=== PATIENT | male | born 1955 | race Two or more races ===

== ENCOUNTER 2020-10-10 23:28 | Emergency (ER) | payer MEDICAID, MEDICARE, OTHER ==
[~2020-10-10] VITALS: Ht 182.9 cm; Wt 90.7 kg
[~2020-10-10 23:28] MED LIST: ALPR0.5T7 PO; AML5T PO; ATOR40TA52 PO; FARXIGA; METF-372 PO; SITA100T7 PO
[2020-10-11 00:41] LABS: Basophils # (auto) 0 10 ^3/uL (0-0.2); Basophils % (auto) 0.5 % (0.0-2.0); Eosinophils # (auto) 0 10 ^3/uL (0-0.8); Eosinophils % (auto) 0.7 % (0.0-7.0); Hematocrit 40.4 % (41.0-53.0); Hemoglobin 13.6 g/dL (13.5-17.5); Lymphocytes # (auto) 1.3 10 ^3/uL (0.4-5.4); Lymphocytes % (auto) 26.5 % (10.0-50.0); Mean Corpuscular Hgb Conc. 33.7 g/dL (32.0-36.0); Mean Corpuscular Volume 86.2 fL (80.0-100.0); Monocytes # (auto) 0.3 10 ^3/uL (0-1.3); Monocytes % (auto) 5.6 % (0.0-12.0); Neutrophils # (auto) 3.2 10 ^3/uL (1.6-8.6); Neutrophils % (auto) 66.7 % (37.0-80.0); Nucleated Red Blood Cells % 0.1 %; Platelet Count (auto) 203 10^3/uL (140-450); Red Blood Cells 4.69 10^6/uL (4.5-5.90); Red Cell Distribution Width 13.2 % (11.8-14.3); White Blood Cell 4.8 10^3/uL (4.4-10.8)
[2020-10-11 00:46] LABS: Urine Bacteria NONE SEEN /hpf (None Seen); Urine Blood Negative /uL (Negative); Urine Specific Gravity 1.003 (1.001-1.035); Urine WBC <1 /hpf (0 - 3)
[2020-10-11 01:00] LABS: INR 0.97 (0.9-1.15)
[2020-10-11 01:02] LABS: Amphetamine Screen, Urine NEGATIVE (NEGATIVE); Barbiturate Scree,Urine NEGATIVE (NEGATIVE); Benzodiazephine Screen, Urine NEGATIVE (NEGATIVE); Cannabinoid Screen, Urine NEGATIVE (NEGATIVE); Cocaine Screen, Urine NEGATIVE (NEGATIVE); Opiate Scree,Urine NEGATIVE (NEGATIVE); Phencyclidine Screen, Urine NEGATIVE (NEGATIVE)
[2020-10-11 01:03] LABS: Alanine Aminotransferase 38 U/L (16-61); Albumin 3.6 g/dL (3.4-5.0); Anion Gap 12 (5-15); Aspartate Aminotransferase 28 U/L (15-37); BUN/Creatinine Ratio 10.9; Blood Urea Nitrogen 10 mg/dL (7-18); Carbon Dioxide 21 mmol/L (21-32); Chloride 109 mmol/L (98-107); GFR African American 106 mL/min; GFR Non-African American 87 mL/min; Glucose 197 mg/dL (74-106); Sodium 142 mmol/L (136-145)
[2020-10-11 01:08] LABS: Alkaline Phosphatase 125 U/L (45-117); Bilirubin, Total 0.3 mg/dL (0.2-1.0)
[2020-10-11] MEDS ORDERED: SODIUM CHLORIDE 0.9% 1,000 ML IV ONE (01:45)
[2020-10-11 04:00] VITALS: BP 109/63
== END 2020-10-11 05:41 | disposition home or self-care (01) ==
LOC: EDBD 23:28 → ER 23:30
DX: F10.129 Alcohol abuse with intoxication, unspecified (principal); I10 Essential (primary) hypertension; E11.9 Type 2 diabetes mellitus without complications; E78.5 Hyperlipidemia, unspecified; Z79.899 Other long term (current) drug therapy; Z20.822 Contact with and (suspected) exposure to COVID-19; W19.XXXA Unspecified fall, initial encounter; Y93.89 Activity, other specified; Y92.89 Other specified places as the place of occurrence of the external cause; Y99.8 Other external cause status
CPT/HCPCS: 36415; 70450; 71045; 80053; 80307; 80320; 81001; 82962; 84484; 85025; 85610; 87426; 93005; 96360

== ENCOUNTER 2024-11-01 16:10 | Emergency (ER) | payer OTHER ==
[~2024-11-01] VITALS: Ht 170.2 cm; Wt 105.0 kg
--- NOTE | 2024-11-01 16:20 | ED.PDOC ---
Altered Mental Status HPI Comments HPI: 69 y.o male presents to the ED via EMS for an evaluation of ETOH intoxication. EMS reports family called out today after finding patient intoxicated at home, state he was having many alcohol drinks but no fall or injuries were reported. 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 Patient denies any pain at this time, appears intoxicated. EMS reports stable vital signs with normal blood glucose. one liter of bolus administrated by EMS is currently being given to patient. No history of fall or trauma.. EMS started a Liter of normal saline bolus in route. At 1722, patient's daughter arrived with additional information. Daughter manuel mcdowell patient is on Pradaxa, states he has been drinking heavily since September of 2024 and noticed today he appeared more agitated and belligerent. Daughter reported she was concerned today due to patient choking on his own saliva. She denies any falls or injuries. Vitals Temperature: 98.6 F Respiratory rate: 20 SpO2: 99% RA Heart rate: 96 Blood pressure: 128/68 Past Medical History: DM, HTN, hyperlipidemia, anxiety, depression, angina, small bowel obstruction, on fenestra, terazosin, metformin, meclizine, Gabapentin Past Surgical History: Knee replacements x 2 and pacemaker. Social History: ETOH abuse HPI: Poor Historian. REVIEW OF SYSTEMS: CONSTITUTIONAL: Denies acute: fever, diaphoresis, chills, HEAD: Denies acute: headache, photophobia Eyes: Denies acute: Double vision, vision loss, eye pain, eye discharge. EARS: Denies acute: tinnitus, hearing loss, ear discharge, ear pain, THROAT: Denies acute: sore throat, swelling, difficulty swallowing , pain with swallowing, change in voice. NECK: Denies acute: neck pain, neck swelling, stiff neck. HEART: Denies acute : chest pain, palpitations, LUNGS: Denies acute: SOB, wheezing, cough, hemoptysis ABDOMEN: Denies acute: abdominal pain, Nausea, Vomiting, diarrhea, melena , hematemesis, hematochezia SKIN: Denies acute: rash, redness, lesions, itchiness. EXTREMITIES: Denies acute: calf pain, numbness, tingling, weakness, denies pain in extremity. Denies acute: Low back pain. Neuro: Denies acute: focal neurological deficit, motor or sensory focal neurological deficit, tremors, seizure like activity, loss of bowel or bladder function, cauda equina like symptoms. : Denies acute: dysuria, hematuria, flank pain, increase in urinary frequency. PSYCH: Denies acute: hallucination, suicidal ideation, homicidal ideation. PHYSICAL EXAM: General: ----no----acute distress, awake and alert. Head: normocephalic, atraumatic. Neck: supple, trachea is midline, no swelling. Throat: Normal phonation. Eyes:, no erythema, no purulent discharge, no proptosis, no icterus. Heart: regular rate, regular rhythm, no significant murmur appreciated. Lungs: no apparent respiratory distress, Able to speak in full sentences. No wheezing, no rhonchi, no crackles. No stridors Clear to auscultation bilaterally. Abdomen: Minimal nonspecific generalized tender to palpation, non distended, soft, no guarding, no rebound, + bowel sounds. Obese Neuro: Awake, Alert, oriented to name, self, situation, follows commands GCS=15. Speech is normal. Skin: no petechia, no purpura, no cyanosis, non-pale, not jaundice. Lower extremities: --trace bilateral - Pitting edema no deformity, no focal swelling, no calf TTP. Makes eye contact. moves all four extremities. Face: no apparent facial droop. No nystagmus. No nuchal rigidity, Kernig's sign, Brudzinski's sign, no meningeal signs. ED COURSE: Time Seen by MD: 16:10 Primary Care Provider: NONE Reviewed Notes: Nurses Notes, Allergies Allergies: Coded Allergies: NO KNOWN ALLERGIES (Unverified , 06/17/15) Home Meds Active Scripts Azithromycin (Zithromax Tri-Michele) 500 Mg Tab, 500 MG PO DAILY for 5 Days, #5 TAB Prov:IFTIKHAR CANADA DO 11/01/24 Reported Medications Metformin Hydrochloride (Metformin Hcl) 1,000 Mg Tab, 1 TAB PO BID, #60 TAB 5 Refills 06/17/15 Amlodipine Besylate (NORVASC TABLET) 5 Mg Tb, 1 TAB PO DAILY, #30 TAB 5 Refills 06/17/15 Sitagliptin Phosphate (Januvia) 100 Mg Tab, 1 TAB PO DAILY, #30 TAB 5 Refills 06/17/15 [Farxiga] No Conflict Check, 10 MG 06/17/15 Alprazolam (Alprazolam) 0.5 Mg Tab, 1 TAB PO BID PRN for ANXIETY, #30 TAB 06/17/15 Atorvastatin Calcium (ATORVASTATIN CALCIUM) 40 Mg Tab, 1 TAB PO DAILY, #30 TAB 5 Refills 06/17/15 Information Source: Patient, Emergency Med Personnel Mode of Arrival: EMS Past Medical History PAST MEDICAL HISTORY: Anxiety, Depression, DM, High Lipids, HTN Surgical History: Denies all surgeries Family History Family History: Reviewed,noncontributory to illness Social History Smoker: Non-Smoker Alcohol: Heavy Drugs: Denies Drug Use Lives In: Home Was a procedure done? Was a procedure done?: No Differential Diagnosis (ALOC) Differential Diagnosis: Dehydration, Hypoglycemia, DKA, Encephalopathy, Meningitis, Sepsis, Hypoxemia, Seizure, Closed Head Injury, CVA, Mass Lesion, SAH, Drug Overdose, ETOH Intoxication, Heart Failure, Renal Failure X-Ray, Labs, Meds, VS Vital Signs Date Time Temp Pulse Resp B/P (MAP) Pulse Ox O2 Delivery O2 Flow Rate FiO2 11/01/24 23:52 109/63 (78) 11/01/24 20:39 70 16 94 Room Air* 0 21 11/01/24 20:25 98.6 70 16 112/67 (82) 94 98.6 11/01/24 16:25 98.6 96 20 128/68 (88) 99 98.6 11/01/24 16:21 98.6 96 20 128/68 (88) 99 98.6 Lab Test 11/01/24 22:39 11/01/24 19:25 11/01/24 18:37 11/01/24 17:50 Range/Units Plasma/Serum Blood Alcohol 181.1 H <10 mg/dL Troponin I High Sensitivity 9 </=54 ng/L Lactic Acid Level 1.9 0.4-2.0 mmol/L Urine Color Colorless Yellow Urine Clarity Clear Clear Urine pH 5.5 5.0-9.0 Urine Specific Rhine 1.003 1.001-1.035 Urine Protein Negative Negative Urine Ketones Negative Negative Urine Blood Negative Negative /uL Urine Nitrite Negative Negative Urine Bilirubin Negative Negative Urine Urobilinogen Normal Negative mg/dL Urine Leukocyte Esterase Negative Negative /uL Urine RBC <1 0 - 3 /hpf Urine Microscopic WBC < 1 0-3 /HPF Urine Squamous Epithelial Cells None seen <5 /hpf Urine Bacteria None seen None Seen /hpf Urine Glucose 2+ H Normal mg/dL Test 11/01/24 17:37 11/01/24 16:32 Range/Units Troponin I High Sensitivity 8 7 </=54 ng/L Plasma/Serum Blood Alcohol 282.9 H 295.8 H <10 mg/dL White Blood Count 3.8 L 4.4-10.8 10^3/uL Red Blood Count 4.02 L 4.5-5.90 10^6/uL Hemoglobin 11.8 L 13.5-17.5 g/dL Hematocrit 35.0 L 41.0-53.0 % Mean Corpuscular Volume 87.0 80.0-100.0 fL Mean Corpuscular Hemoglobin 29.3 28.0-32.0 pg Mean Corpuscular Hemoglobin Concent 33.7 32.0-36.0 g/dL Red Cell Distribution Width 14.4 H 11.8-14.3 % Platelet Count 154 140-450 10^3/uL Mean Platelet Volume 9.3 6.9-10.8 fL Neutrophils (%) (Auto) 54.0 37.0-80.0 % Lymphocytes (%) (Auto) 31.4 10.0-50.0 % Monocytes (%) (Auto) 13.1 H 0.0-12.0 % Eosinophils (%) (Auto) 1.1 0.0-7.0 % Basophils (%) (Auto) 0.4 0.0-2.0 % Neutrophils # (Auto) 2.1 1.6-8.6 10 ^3/uL Lymphocytes # (Auto) 1.2 0.4-5.4 10 ^3/uL Monocytes # (Auto) 0.5 0-1.3 10 ^3/uL Eosinophils # (Auto) 0 0-0.8 10 ^3/uL Basophils # (Auto) 0 0-0.2 10 ^3/uL Nucleated Red Blood Cells 0.1 % Sodium Level 142 136-145 mmol/L Potassium Level 3.9 3.5-5.1 mmol/L Chloride Level 111 H 98-107 mmol/L Carbon Dioxide Level 21 20-31 mmol/L Anion Gap 10 5-15 Blood Urea Nitrogen 12 9-23 mg/dL Creatinine 0.93 0.700-1.30 mg/dL Glomerular Filtration Rate Calc 88 >90 mL/min BUN/Creatinine Ratio 12.9 10.0-20.0 Serum Glucose 198 H 74-106 mg/dL Lactic Acid Level 2.5 *H 0.4-2.0 mmol/L Calcium Level 7.9 L 8.7-10.4 mg/dL Magnesium Level 1.6 1.6-2.6 mg/dL Total Bilirubin 0.3 0.2-1.0 mg/dL Aspartate Amino Transferase (AST) 14 13-40 U/L Alanine Aminotransferase (ALT) 13 7-40 U/L Alkaline Phosphatase 74 46-116 U/L Total Protein 5.4 L 5.7-8.2 g/dL Albumin 3.5 3.2-4.8 g/dL Lipase 35 12-53 U/L Current Medications Medications (Trade) Dose Ordered Sig/Corey Route Start Time Stop Time Status Last Admin Sodium Chloride 1,000 ml @ 1,000 mls/hr Q1H ONCE IV 11/01/24 16:30 11/01/24 17:29 DC 11/01/24 16:34 Thiamine HCl 100 mg ONCE ONCE PO 11/01/24 16:30 11/01/24 16:31 DC 11/01/24 17:07 Ceftriaxone Sodium 50 ml @ 100 mls/hr ONCE ONCE IV 11/01/24 20:00 11/01/24 20:29 DC 11/01/24 20:33 [place] [id number] Ph: [phone] DIAGNOSTIC IMAGING Diagnostic Imaging Report : [id number] Signed PATIENT: IRAM SPEARSACCT: [id number] UNIT: [id number] : 1955 LOC: ER ROOM / BED: / AGE / SEX: 69 / M ADM STATUS: REG ER SERVICE 09 ORDERING PHYSICIAN: IFTIKHAR CANADA DO PROCEDURE(s): CXRP - CHEST PORTABLE REASON: aloc, etoh ORDER NUMBER(s): [id number], ACCESSION NUMBER(s): [id number] CHEST RADIOGRAPH Indication: aloc, etoh Technique: Single frontal view of the chest was obtained COMPARISON: CHEST XRAY 1 VIEW on DOS: 10/11/20 FINDINGS: Lines and Tubes: Pacemaker/ AICD in the left upper chest with 2 cardiac leads Lungs: Bibasilar opacities may reflect atelectasis or mild pneumonia Pleura: No effusion. No pneumothorax. Cardiomediastinal contours: Unremarkable Bones: Unremarkable IMPRESSION: 1. Bibasilar opacities may reflect atelectasis or mild pneumonia. ATED BY: JAIDEN MIRANDA MD DICTATED DATE/TIME: 11/01/241931 SIGNED BY: JAIDEN MIRANDA MD SIGNED DATE/TIME: 11/01/241931 CC: Time of 1ST Reevaluation: 16:16 Reevaluation 1ST: Unchanged Time of 2ND Reevaluation: 00:00 Reevaluation 2ND: Improved Patient Education/Counseling: Other (patient is intoxicated ) Family Education/Counseling: Diagnosis, Treatment Comments Patient presented with the above HPI.--alcohol intoxication----workup was initiated. patient was found with the above mentioned diagnosis. the following medications were ordered: please refer to order lists of meds and tests obtained by myself Dr. [place]. Patient ED course and VS have been stabilized. Patient has been reassessed in the ED and remained in a stable condition. Pertinent incidental findings were discussed with the patient and/or family. Patient/family voices understanding and is agreeable with plan. Patient has been observed in the ED adequate length of time to insure improvement/stability. Escalation of care considered: Consideration of escalation to observation or admission Chest x-ray suggests pneumonia. Patient was given Rocephin and sent home with a prescription for a Z-Michele. Patient is ambulating in the ED independently. Patient was DISCHARGED home in a stable condition with his daughter. All the reports of any imaging studies that were ordered by myself were reviewed by myself. Departure 1 Departure Time of Disposition: 23:43 Impression: Primary Impression: Alcohol intoxication Additional Impressions: Alcohol abuse Pneumonia Disposition: 01 HOME / SELF CARE / HOMELESS Condition: Stable Additional Instructions: Additional instructions: You MUST follow-up with your primary care/family doctor in 1 to 2 days. If you are unable to see your primary care/family doctor, please return to our emergency room for re-assessment and re-evaluation in 1 to 2 days. Return to the emergency room here in our facility or to the nearest ER [facility] if your symptoms change or worsen. CONSULTATIONS: you MUST Follow-up for consultation as soon as possible with: -cardiology and Psychology/Psychiatry in 1-2 days. Please call for appointment. You MUST call the consultants office yourself to make an appointment. You may need to arrange that through your insurance and/or your primary/family doctor. If you are unable to see the bridal sales consultant in 1 to 2 days, you must return to our emergency room (or any other ER of your choice) for re-assessment and re- evaluation. Adequate fluid hydration. Seek help regarding her alcohol abuse. e-Prescriptions Azithromycin (Zithromax Tri-Michele) 500 Mg Tab 500 MG PO DAILY for 5 Days, #5 TAB Prov: IFTIKHAR CANADA DO 11/01/24 Discharged With: Self, Relative Critical Care Note Critical Care Time?: No I personally scribed for IFTIKHAR CANADA DO ([email or web address]) on 11/01/24 at 16:20. Electronically submitted by Neyda Henriquez ([facility]). I personally scribed for IFTIKHAR CANADA DO ([email or web address]) on 11/01/24 at 16:56. Electronically submitted by Neyda Henriquez ([facility]). I personally scribed for IFTIKHAR CANADA DO ([email or web address]) on 11/01/24 at 17:11. Electronically submitted by Neyda Henriquez ([facility]). I personally scribed for IFTIKHAR CANADA DO ([email or web address]) on 11/01/24 at 17:29. Electronically submitted by Neyda Henriquez ([facility]). I personally scribed for IFTIKHAR CANADA DO ([email or web address]) on 11/01/24 at 17:29. Electronically submitted by Neyda Henriquez ([facility]). IFTIKHAR CANADA DO Nov 01, 2024 16:20
[2024-11-01] MEDS: SODIUM CHLORIDE 0.9% 1,000 ML IV ONE (16:34)
[2024-11-01 16:52] LABS: Basophils # (auto) 0 10 ^3/uL (0-0.2); Basophils % (auto) 0.4 % (0.0-2.0); Eosinophils # (auto) 0 10 ^3/uL (0-0.8); Eosinophils % (auto) 1.1 % (0.0-7.0); Hemoglobin 11.8 g/dL (13.5-17.5); Lymphocytes # (auto) 1.2 10 ^3/uL (0.4-5.4); Lymphocytes % (auto) 31.4 % (10.0-50.0); Mean Corpuscular Hemoglobin 29.3 pg (28.0-32.0); Mean Corpuscular Hgb Conc. 33.7 g/dL (32.0-36.0); Monocytes # (auto) 0.5 10 ^3/uL (0-1.3); Monocytes % (auto) 13.1 % (0.0-12.0); Neutrophils # (auto) 2.1 10 ^3/uL (1.6-8.6); Nucleated Red Blood Cells % 0.1 %; Platelet Count (auto) 154 10^3/uL (140-450); Red Blood Cells 4.02 10^6/uL (4.5-5.90); Red Cell Distribution Width 14.4 % (11.8-14.3); White Blood Cell 3.8 10^3/uL (4.4-10.8)
[2024-11-01] MEDS: THIAMINE HCL 100 MG TAB PO ONE (17:07)
[2024-11-01 17:15] LABS: Alanine Aminotransferase 13 U/L (7-40); Albumin 3.5 g/dL (3.2-4.8); Alkaline Phosphatase 74 U/L (46-116); Anion Gap 10 (5-15); Aspartate Aminotransferase 14 U/L (13-40); BUN/Creatinine Ratio 12.9 (10.0-20.0); Blood Alcohol 295.8 mg/dL (<10); Blood Urea Nitrogen 12 mg/dL (9-23); Carbon Dioxide 21 mmol/L (20-31); Magnesium 1.6 mg/dL (1.6-2.6); Potassium 3.9 mmol/L (3.5-5.1); Sodium 142 mmol/L (136-145)
[2024-11-01 17:16] LABS: Bilirubin, Total 0.3 mg/dL (0.2-1.0)
[2024-11-01 17:18] LABS: Lactic Acid w/Reflex 2.5 mmol/L (0.4-2.0)
[2024-11-01 17:19] LABS: Calcium 7.9 mg/dL (8.7-10.4); Chloride 111 mmol/L (98-107); Glucose 198 mg/dL (74-106); Total Protein 5.4 g/dL (5.7-8.2)
[2024-11-01 17:32] LABS: Lipase 35 U/L (12-53)
[2024-11-01 18:27] LABS: Urine Bacteria None Seen /hpf (None Seen)
[2024-11-01 19:04] LABS: Urine Blood Negative /uL (Negative); Urine Clarity Clear (Clear); Urine Color Colorless (Yellow); Urine Protein, UAD Negative (Negative); Urine Specific Gravity 1.003 (1.001-1.035); Urine Squamous Epithelial Cell None Seen /hpf (<5); Urine Urobilinogen Normal (Negative); Urine pH 5.5 (5.0-9.0)
[2024-11-01 19:06] LABS: Urine WBC < 1 /HPF (0-3)
--- NOTE | 2024-11-01 19:35 | DVH ---
CHEST RADIOGRAPH Indication: aloc, etoh Technique: Single frontal view of the chest was obtained COMPARISON: CHEST XRAY 1 VIEW on DOS: 10/11/20 FINDINGS: Lines and Tubes: Pacemaker/ AICD in the left upper chest with 2 cardiac leads Lungs: Bibasilar opacities may reflect atelectasis or mild pneumonia Pleura: No effusion. No pneumothorax. Cardiomediastinal contours: Unremarkable Bones: Unremarkable IMPRESSION: 1. Bibasilar opacities may reflect atelectasis or mild pneumonia.
[2024-11-01 20:25] VITALS: TEMP 98.6
[2024-11-01] MEDS: cefTRIAXone 1GM/50ML D5W 50 ML IV ONE (20:33)
[2024-11-01 20:39] VITALS: PULSE 70; RESP 16; O2SAT 94
[2024-11-01] MEDS ORDERED: AZITTAB2 PO (23:45)
[2024-11-01 23:52] VITALS: BP 109/63
== END 2024-11-01 23:53 | disposition home or self-care (01) ==
LOC: EDBD 16:10 → ER 16:10
DX: F10.129 Alcohol abuse with intoxication, unspecified (principal); J18.9 Pneumonia, unspecified organism; E11.9 Type 2 diabetes mellitus without complications; E78.5 Hyperlipidemia, unspecified; F32.A Depression, unspecified; F41.9 Anxiety disorder, unspecified; I10 Essential (primary) hypertension; Z79.01 Long term (current) use of anticoagulants; Z79.84 Long term (current) use of oral hypoglycemic drugs; Z79.899 Other long term (current) drug therapy; Z95.0 Presence of cardiac pacemaker; Z96.659 Presence of unspecified artificial knee joint; Y90.8 Blood alcohol level of 240 mg/100 ml or more
CPT/HCPCS: 36415; 71045; 80053; 80320; 81001; 83605; 83690; 83735; 84484; 85025; 96361; 96365; 99284; J0696; J7040